=== PATIENT | female | born 1950 | race Caucasian/White ===

== ENCOUNTER 2020-12-03 12:11 | Outpatient (REF) | payer MEDICARE, OTHER, SELFPAY ==
[2020-12-03 13:50] LABS: MANUAL DIFF FLAG NO
[2020-12-03 14:00] LABS: Basophils Percent Auto 0.7 % (0-2); Eosinophils Absolute Auto 0.1 X10*3/uL (0.0-0.4); Eosinophils Percent Auto 2.6 % (0-4); Hematocrit 41.9 % (37-47); Hemoglobin 13.5 g/dl (12.0-16.0); Imm Gran Abs Auto 0.01 X10*3/uL (0.00-0.03); Imm Gran Pct Auto 0.2 % (0.0-0.4); Lymphocytes Absolute Auto 1.2 X10*3/uL (1.2-4.9); Lymphocytes Percent Auto 22.8 % (20-40); Mean Corpuscular HGB Conc 32.2 g/dl (31.0-35.0); Mean Corpuscular Hemoglobin 31.8 pg (27.0-33.0); Mean Corpuscular Volume 98.8 fL (80-98); Monocytes Absolute Auto 0.5 X10*3/uL (0.1-1.2); Monocytes Percent Auto 8.5 % (2-11); Neutrophils Absolute Auto 3.5 X10*3/uL (2.0-8.3); Neutrophils Percent Auto 65.2 % (45-73); Platelet Count 154 X10*3/uL (160-400); Red Blood Count 4.24 X10*6/uL (4.20-5.50); Red Cell Distribution Width 13.3 % (11.0-16.0); White Blood Count 5.4 X10*3/uL (4.8-10.8)
[2020-12-03 14:18] LABS: Alanine Aminotransferase 17 U/L (0-31); Albumin Level 4.1 g/dL (3.5-5.0); Alkaline Phosphatase 78 U/L (39-117); Aspartate Amino Transferase 25 U/L (5-31); Bilirubin Direct 0.3 mg/dL (0.0-0.5); Bilirubin Total 0.7 mg/dL (0.0-1.0); Total Protein 7.1 g/dL (6.5-8.0)
[2020-12-04 14:01] LABS: Anti Nuclear Antibody Screen NEGATIVE (NEGATIVE)
[2020-12-05 08:08] LABS: HBS Num1 0.33 mIU/mL (0-7.99); HBc Num1 0.09 S/CO (0.00-0.79); Hepatitis B Core Antibody Nonreactive (Nonreactive); ~Hepatitis B Surface Antibody NONREACTIVE (Nonreactive)
[2020-12-05 08:45] LABS: HBsAGNum1 0.15 S/CO (0.00-0.99); Hepatitis B Surface Antigen Negative (Negative); ~HepC Num1 0.15 S/CO (0.00-0.79); ~Hepatitis C Antibody Nonreactive (Nonreactive)
[2020-12-05 09:57] LABS: Mitochondrial Antibodies NEGATIVE (NEGATIVE)
[2020-12-08 12:56] LABS: Smooth Muscle Antibody <20 U (<20)
== END 2020-12-03 12:12 | disposition home or self-care (01) ==
LOC: HO.10HDL 12:11
PROVIDERS: Absent Provider Internal Medicine; Visit Provider Internal Medicine Gastroenterology
DX: R93.89 Abnormal findings on diagnostic imaging of other specified body structures (principal)
CPT/HCPCS: 36415; 80076; 85025; 86038; 86039; 86255; 86256; 86704; 86706; 86803; 87340

== ENCOUNTER 2022-01-05 13:36 | Outpatient (REF) | payer MEDICARE, OTHER, SELFPAY ==
[2022-01-05 14:31] LABS: Leukocytes Stool Qualitative NEGATIVE (NEGATIVE)
== END 2022-01-05 13:37 | disposition home or self-care (01) ==
LOC: HO.LNP 13:36
PROVIDERS: Visit Provider Internal Medicine Gastroenterology
DX: R19.7 Diarrhea, unspecified (principal)
CPT/HCPCS: 87045; 87046; 87077; 87177; 87209; 89055

== ENCOUNTER 2022-01-08 12:51 | Outpatient (REF) | payer MEDICARE, OTHER, SELFPAY ==
[2022-01-08 13:09] LABS: MANUAL DIFF FLAG NO
[2022-01-08 13:33] LABS: Basophils Absolute Auto 0.1 X10*3/uL (0.0-0.2); Basophils Percent Auto 0.9 % (0-2); Eosinophils Absolute Auto 0.1 X10*3/uL (0.0-0.4); Eosinophils Percent Auto 1.5 % (0-4); Hematocrit 43.5 % (37.0-47.0); Hemoglobin 14.1 g/dl (12.0-16.0); Imm Gran Abs Auto 0.03 X10*3/uL (0.00-0.03); Imm Gran Pct Auto 0.3 % (0.0-0.4); Lymphocytes Absolute Auto 1.6 X10*3/uL (1.2-4.9); Lymphocytes Percent Auto 17.8 % (20-40); Mean Corpuscular HGB Conc 32.4 g/dl (31.0-35.0); Mean Corpuscular Hemoglobin 32.3 pg (27.0-33.0); Mean Corpuscular Volume 99.5 fL (80.0-98.0); Mean Platelet Volume 10.3 fL (9.4-12.3); Monocytes Absolute Auto 0.7 X10*3/uL (0.1-1.2); Monocytes Percent Auto 7.5 % (2-11); Neutrophils Absolute Auto 6.4 x10*3/uL (2.0-8.3); Platelet Count 257 X10*3/uL (160-400); Red Blood Count 4.37 X10*6/uL (4.20-5.50); Red Cell Distribution Width 13.5 % (11.0-16.0); White Blood Count 8.9 X10*3/uL (4.8-10.8)
[2022-01-08 14:02] LABS: Alanine Aminotransferase 10 U/L (0-31); Albumin Level 3.9 g/dL (3.5-5.0); Alkaline Phosphatase 83 U/L (39-117); Aspartate Amino Transferase 16 U/L (5-31); Bilirubin Direct 0.4 mg/dL (0.0-0.5); Bilirubin Total 0.9 mg/dL (0.0-1.0); Lipase 20 U/L (8-78); Total Protein 7.1 g/dL (6.5-8.0)
== END 2022-01-08 12:52 | disposition home or self-care (01) ==
LOC: HO.LAB 12:51
PROVIDERS: PCP Internal Medicine; Visit Provider Internal Medicine Gastroenterology
DX: R10.30 Lower abdominal pain, unspecified (principal)
CPT/HCPCS: 36415; 80076; 83690; 85025

== ENCOUNTER 2024-03-13 11:10 | Day surgery (SDC) | payer MEDICARE, OTHER, SELFPAY ==
[2024-03-09 11:04] VITALS: BMI 35.1
--- NOTE | 2024-03-12 09:48 | P.CONAN_ITS ---
HPI - Anesthesia Eval Consult details Narrative: 73yo F for Upper Endoscopy and Colonoscopy Medically optimized Cardiac optimized - Follows [facility] for CAD s/p TX, CABG x2 2019 Vascular optimized. Follows [facility] for PAD and PE - on eliquis and ok to hold. s/p carotid subclavian bypass and Superior mesenteric artery stent 2017 [facility] Past Medical History Medical History Sleep apnea Hypothyroid PVD (peripheral vascular disease) Mesenteric ischemia Diabetes Elevated cholesterol HTN (hypertension) Surgical History Surgical History History of surgery on arm Hx of aorto-femoral bypass Hx of coronary artery bypass graft History of back surgery Hx of cholecystectomy History of left-sided carotid endarterectomy History of esophagogastroduodenoscopy (EGD) H/O colonoscopy Social History Social History (Updated 03/09/24 @ 11:01 by Mariela Parikh RN) Patient Tobacco Use Status: Former Tobacco user Tobacco use type: Cigarette Years Smoked: 36 Use of substances other than those prescribed or required for medical reasons: No Are you DNR?: No Advance Directives: No Advance Directives Information Provided: Yes Nutrition Risks: No Nutritional Risk Meds Allergies Allergy/AdvReac Type Severity Reaction Status Date / Time No Known Allergies Allergy Mild NKDA Verified 03/13/24 11:42 Home Medications ?Medication ?Instructions ?Recorded ?Confirmed ?Last Taken ?Type apixaban 2.5 mg tablet (Eliquis) 2.5 mg PO BID 03/09/24 03/09/24 03/08/24 History dapagliflozin propanediol 10 mg 10 mg PO DAILY 03/09/24 03/09/24 02/28/24 History tablet (Farxiga) folic acid 1 mg tablet 1 mg PO DAILY 03/09/24 03/09/24 Unknown History furosemide 20 mg tablet 20 mg PO DAILY PRN edema 03/09/24 03/09/24 Unknown History glimepiride 1 mg tablet 1 mg PO QAM 03/09/24 03/09/24 Unknown History levothyroxine 100 mcg tablet 100 mcg PO DAILY 03/09/24 03/09/24 03/13/24 History (Synthroid) metoprolol succinate 100 mg 100 mg PO DAILY 03/09/24 03/09/24 03/13/24 History tablet,extended release 24 hr pantoprazole 40 mg tablet,delayed 40 mg PO DAILY 03/09/24 03/09/24 Unknown History release semaglutide 0.25 mg or 0.5 mg (2 0.5 mg subcut QWEEK 03/09/24 03/09/24 02/28/24 History mg/3 mL) subcutaneous pen injector (Ozempic) simvastatin 40 mg tablet 40 mg PO BEDTIME 03/09/24 03/09/24 Unknown History spironolactone 25 mg tablet 25 mg PO DAILY 03/09/24 03/09/24 Unknown History Exam Height,Weight and Vital Signs: Height 5 ft 5 in Weight 95.708 kg Assessment and Plan Assessment Anesthesia Assessment: Chart Reviewed
[2024-03-13 11:32] VITALS: BMI 35.1
[2024-03-13 11:43] VITALS: BP 164/58; PULSE 83; RESP 18; TEMP 36.8; O2SAT 97
[2024-03-13 11:47] LABS: Glucose, Whole Blood 124 mg/dL (60-115)
--- NOTE | 2024-03-13 11:50 | MHC.SHP ---
Pre-Procedural Eval Section A - 24 Hr Update-Section A only Date of Service: 03/13/24 Section B - Complete if H&P > 30 days Chief Complaint: Melena Details of Present Illness: see H&P no changes Relevant Social History: None Present Medications: see Short Stay Collaborative assessment Medical History: No relevant PMH History of Previous Operations: No relevant previous surgery Allergies: Allergies Allergy/AdvReac Type Severity Reaction Status Date / Time No Known Allergies Allergy Mild NKDA Verified 03/13/24 11:42 Review of Systems Sugical H&P ROS: Negative: Constitution, Cardiovascular, Respiratory, Neurological, Psychiatric, Hem-Onc, Allergic/Immunologic, Gastrointestinal, Genitourinary, Musculoskeletal, Integumentary, Endocrine and Eyes/Ears/Nose/Throat Exam Surgical H&P Exam: Normal: HEENT, Normal: Heart, Normal: Lungs, Normal: Extremities, Normal: Abdomen, Normal: Skin and Normal: Neurological Plan Diagnosis/Plan: Unchanged I have reviewed the history and physical and performed a pertinent physical examination on my patient. No changes have occurred unless specified. Time Spent With Patient Time: Total time managing care of this patient today ____ minutes.
[2024-03-13 13:37] VITALS: BP 93/36; PULSE 76; RESP 20; TEMP 36.2; O2SAT 95
[2024-03-13 13:52] VITALS: BP 104/41; PULSE 74; RESP 20; O2SAT 97
[2024-03-13 14:06] VITALS: BP 146/57; PULSE 66; RESP 16; TEMP 36.3; O2SAT 97
--- NOTE | 2024-03-13 18:57 | PC.NURSE ---
[facility] log on issues. Physician post procedure note found documented using paper Progress Note.
--- NOTE | 2024-03-13 23:14 | OP_ITS ---
DATE OF SERVICE: 03/13/2024 SURGEON: Bryon Bowden MD INDICATIONS: Iron deficiency anemia and Hemoccult-positive stools. PREOPERATIVE DIAGNOSIS: POSTOPERATIVE DIAGNOSIS: PROCEDURE PERFORMED: Upper endoscopy with biopsy, colonoscopy to the terminal ileum with snare polypectomy. ESTIMATED BLOOD LOSS: COMPLICATIONS: ANESTHESIA: Monitored anesthesia care. ASSISTANTS: SPECIMENS: DESCRIPTION OF PROCEDURE: A history and physical was performed. The risks and benefits of the procedure were explained to the patient and informed consent was obtained. The patient was placed in the left lateral decubitus position. The Olympus video gastroscope was introduced into the esophagus, stomach, and duodenum. Examination was performed. The scope was removed. She was repositioned for colonoscopy. A digital rectal exam was performed and was found to be normal. The Olympus pediatric video colonoscope was introduced into the rectum and advanced to the cecum. The cecum was identified by transillumination, palpation, and identification of the ileocecal valve. Examination was performed. The scope was removed. She tolerated both procedures well and was returned to the recovery area in stable condition. FINDINGS: Upper endoscopy: 1. Esophagus: The esophagus was normal. There was no esophagitis. 2. Stomach: The stomach was normal. 3. Duodenum: The bulb and 2nd portion were normal. Biopsies were obtained from the 2nd portion of the duodenum because of the patient's history of iron deficiency. Colonoscopy: The terminal ileum was examined for approximately 5 to 10 cm and appeared normal. There were multiple nonbleeding AVMs in the cecum and the right colon with 1 or 2 others in the remainder of the colon. The largest of these measured about 15 x 20 mm. No therapy was performed on these lesions. Two polyps were identified and removed with a hot snare. These were located in the right colon and at 30 cm, both measured less than 10 mm. Retroflexed examination showed small internal hemorrhoids. There was extensive diverticulosis in the descending and sigmoid without any evidence of diverticulitis. IMPRESSION: 1. Normal upper endoscopy. 2. Colonic arteriovenous malformations. 3. Colon polyps. RECOMMENDATION: 1. Follow up the biopsy results. 2. Treat iron deficiency anemia. MD ZACHARY De La Paz/TIGRE / [id number]
== END 2024-03-13 14:52 | disposition home or self-care (01) ==
PROVIDERS: PCP Internal Medicine; Visit Provider Internal Medicine Gastroenterology
PROC: (CPT 45385; principal; 2024-03-13 13:40)
DX: K92.1 Melena (principal); D50.9 Iron deficiency anemia, unspecified; K55.20 Angiodysplasia of colon without hemorrhage; K63.5 Polyp of colon; K64.8 Other hemorrhoids; E11.9 Type 2 diabetes mellitus without complications; I10 Essential (primary) hypertension
CPT/HCPCS: 45385; 43239; 82947; 88305; 88313; J2704

== ENCOUNTER 2024-04-18 09:42 | Outpatient (REF) | payer MEDICARE, OTHER, SELFPAY ==
[2024-04-18 10:57] LABS: Hematocrit 44.2 % (37.0-47.0); Mean Corpuscular HGB Conc 31.7 g/dl (31.0-35.0); Mean Corpuscular Hemoglobin 30.2 pg (27.0-33.0); Mean Corpuscular Volume 95.3 fL (80.0-98.0); Mean Platelet Volume 10.5 fL (9.4-12.3); Red Blood Count 4.64 X10*6/uL (4.20-5.50); Red Cell Distribution Width 17.8 % (11.0-16.0); White Blood Count 5.6 X10*3/uL (4.8-10.8)
[2024-04-18 11:08] LABS: Platelet Count 156 X10*3/uL (160-400)
[2024-04-18 11:51] LABS: Iron 188 mcg/dL (30-160); Percent Iron Saturation 54 % (15-50); Total Iron Binding Capacity 345 mcg/dL (228-428); Unsaturated Iron Binding 157 ug/dL
[2024-04-18 12:07] LABS: Ferritin 39 ng/mL (10-250)
== END 2024-04-18 09:43 | disposition home or self-care (01) ==
LOC: HO.LAB 09:42
PROVIDERS: PCP Internal Medicine; Visit Provider Internal Medicine Gastroenterology
DX: D50.9 Iron deficiency anemia, unspecified (principal)
CPT/HCPCS: 36415; 82728; 83540; 85027